=== PATIENT | male | born 1935 | race Caucasian/White ===

== ENCOUNTER 2017-04-27 02:16 | Emergency (ER) | payer OTHER ==
[~2017-04-27] VITALS: Ht 177.8 cm; Wt 86.3 kg
[~2017-04-27 02:16] MED LIST: ASPIR-LOW81 MG PO; COZAAR50 MG PO; HYDROCHLOROTHIA25 MG PO; LOSARTAN POTASS50 MG PO; MIRALAX255 GM PO; RANITIDINE HCL150 MG PO; SIMVASTATIN20 MG PO; ULTRAM50 MG PO
[2017-04-27 02:54] LABS: HEMATOCRIT 43.4 % (38.0-50.0); MCH 28.1 PG (29.0-34.0); MCHC 33.2 G/DL (30.0-36.0); MCV 84.6 FL (86-99); MEAN PLAT.VOLUME 8.7 uM^3 (9.0-12.4); PLATELET COUNT 139 K/uL (156-360); RBC DIS.WIDTH-CV 13.5 % (11.8-14.6); RBC DIS.WIDTH-SD 41.6 % (39-53); RED BLOOD COUNT 5.13 M/uL (4.00-5.50); WHITE BLOOD COUNT 3.8 K/uL (4.1-10.2)
[2017-04-27 03:05] LABS: CHLORIDE 106 mEq/L (99-109); POTASSIUM 3.6 mEq/L (3.7-5.4); SODIUM 140 mEq/L (136-147)
[2017-04-27 03:08] LABS: GLUCOSE 131 mg/dL (70-99)
[2017-04-27 03:09] LABS: ANION GAP 10 MEQ/L (2-14)
[2017-04-27 03:10] LABS: TOTAL BILIRUBIN 0.4 mg/dL (0.0-1.0)
[2017-04-27 03:11] LABS: ALKALINE PHOSPHATASE 90 IU/L (3-129); GFR ESTIMATE (CALCULATED) > 59 mL/min/
[2017-04-27 03:12] LABS: UREA NITROGEN (BUN) 21 mg/dL (9-23)
[2017-04-27 03:15] LABS: LIPASE 13 U/L (1.0-51.0)
[2017-04-27 03:16] LABS: TROP-I INTERPRETATION NEGATIVE; TROPONIN-I 0.01 ng/mL (0.0-0.30)
[2017-04-27 04:19] LABS: ADD MIUA? NO; BILIRUBIN NEGATIVE; BLOOD NEGATIVE; COLOR STRAW ((YELLOW)); GLUCOSE (STRIP) NEGATIVE; KETONES NEGATIVE; LEUKOCYTES NEGATIVE; NITRITE NEGATIVE; PROTEIN (STRIP) NEGATIVE; SPECIFIC GRAVITY 1.017 (1.000-1.030); UCUL ADDED? NO; UROBILINOGEN 0.2 MG/DL (0.2-1.0)
[2017-04-27] MEDS ORDERED: BENTYL20 MG PO (04:36)
[2017-04-27] MEDS ORDERED: NORCO 5/3251 TABLET PO (04:36)
[2017-04-27 05:00] VITALS: BP 134/84
== END 2017-04-27 05:11 | disposition home or self-care (01) ==
LOC: EME 02:16
PROVIDERS: Emergency Medicine
DX: R10.31 Right lower quadrant pain (principal); D72.819 Decreased white blood cell count, unspecified; D69.6 Thrombocytopenia, unspecified; I10 Essential (primary) hypertension; I72.4 Aneurysm of artery of lower extremity; K21.9 Gastro-esophageal reflux disease without esophagitis; K57.90 Diverticulosis of intestine, part unspecified, without perforation or abscess without bleeding
CPT/HCPCS: 74177; 80053; 81003; 83605; 83690; 84484; 85027; 93005; 99281; 99285; J3010; J7030

== ENCOUNTER 2017-05-31 05:18 | Inpatient (IN) | payer OTHER ==
[2017-05-31] VITALS (11 sets, daily range): BP systolic 101–157; BP diastolic 68–92
[~2017-05-31] VITALS: Ht 177.8 cm; Wt 89.1 kg
[~2017-05-31 05:18] MED LIST changes: +BENTYL20 MG PO; +LO-DOSE ASPIRIN81 M2 PO; +NORCO 5/3251 TABLET PO; +NORVASC10 MG PO; +PROSCAR5 MG PO
[2017-05-31 10:26] LABS: HEMATOCRIT 40.4 % (38.0-50.0); MCH 28.4 PG (29.0-34.0); MCHC 33.4 G/DL (30.0-36.0); MCV 85.1 FL (86-99); MEAN PLAT.VOLUME 8.8 uM^3 (9.0-12.4); PLATELET COUNT 124 K/uL (156-360); RBC DIS.WIDTH-CV 13.7 % (11.8-14.6); RBC DIS.WIDTH-SD 42.8 % (39-53); RED BLOOD COUNT 4.75 M/uL (4.00-5.50); WHITE BLOOD COUNT 4.5 K/uL (4.1-10.2)
[2017-05-31 10:48] LABS: TROP-I INTERPRETATION NEGATIVE; TROPONIN-I < 0.01 ng/mL (0.0-0.30)
[2017-05-31 10:54] LABS: ANION GAP 10 MEQ/L (2-14); CHLORIDE 107 MEQ/L (99-109); GFR ESTIMATE (CALCULATED) > 59 mL/min/; GLUCOSE 129 mg/dL (70-99); POTASSIUM 3.9 MEQ/L (3.7-5.4); SAMPLE HEMOLYSIS CHECK 0; SAMPLE ICTERIC CHECK 0; SAMPLE LIPEMIA CHECK 0; SODIUM 142 MEQ/L (136-147); UREA NITROGEN (BUN) 20 mg/dL (9-23)
[2017-05-31 13:40] LABS: METH RESISTANT S AUREUS PCR NEGATIVE (NEGATIVE)
[2017-05-31 13:41] LABS: PROBE CHECK PASS; SPECIMEN PROCESSING CONTROL PASS
[2017-06-01 03:35] VITALS: BP 109/67
[2017-06-01 05:42] LABS: HEMATOCRIT 38.8 % (38.0-50.0); MCHC 32.2 G/DL (30.0-36.0); MCV 86.8 FL (86-99); PLATELET COUNT 121 K/uL (156-360); RBC DIS.WIDTH-CV 14.1 % (11.8-14.6); RBC DIS.WIDTH-SD 44.7 % (39-53); RED BLOOD COUNT 4.47 M/uL (4.00-5.50); WHITE BLOOD COUNT 5.2 K/uL (4.1-10.2)
[2017-06-01 06:08] LABS: ANION GAP 6 MEQ/L (2-14); CHLORIDE 103 MEQ/L (99-109); GFR ESTIMATE (CALCULATED) > 59 mL/min/; GLUCOSE 107 mg/dL (70-99); SAMPLE HEMOLYSIS CHECK 0; SAMPLE ICTERIC CHECK 0; SAMPLE LIPEMIA CHECK 0; SODIUM 139 MEQ/L (136-147); UREA NITROGEN (BUN) 18 mg/dL (9-23)
[2017-06-01 06:16] LABS: TROP-I INTERPRETATION NEGATIVE; TROPONIN-I < 0.01 ng/mL (0.0-0.30)
[2017-06-01 07:05] VITALS: BP 127/79
[2017-06-01 11:25] VITALS: BP 138/83
[2017-06-01 15:18] VITALS: BP 130/83
[2017-06-01 19:09] VITALS: BP 123/82
[2017-06-01 23:32] VITALS: BP 110/64
[2017-06-02 03:00] VITALS: BP 128/81
[2017-06-02 07:26] VITALS: BP 128/79
[2017-06-02 11:39] VITALS: BP 121/67
[2017-06-02] MEDS ORDERED: TRAMADOL HCL50 MG PO (12:09)
== END 2017-06-02 13:35 | disposition home or self-care (01) | DRG 253 ==
LOC: 2SOUTH 05:18 → 4WEST 12:04 → 2SOUTH 15:45 → 4EAST 21:04
PROVIDERS: Surgery
PROC: 04RK0JZ Replacement of Right Femoral Artery with Synthetic Substitute, Open Approach (ICD-10-PCS; principal; 2017-05-31)
DX: I72.4 Aneurysm of artery of lower extremity (principal); I74.3 Embolism and thrombosis of arteries of the lower extremities; I10 Essential (primary) hypertension
CPT/HCPCS: 80048; 84484; 85027; 87641; 93005; C1875; C2628; J0330; J0690; J1170; J1644; J1650; J2405; J2720; J3010; J7120

== ENCOUNTER 2018-05-05 13:57 | Emergency (ER) | payer OTHER ==
[~2018-05-05] VITALS: Ht 177.8 cm; Wt 87.0 kg
[~2018-05-05 13:57] MED LIST changes: +TRAMADOL HCL50 MG PO
[2018-05-05 15:33] LABS: HEMATOCRIT 43.1 % (38.0-50.0); HEMOGLOBIN 14.8 G/DL (12.5-16.6); MCH 28.8 PG (29.0-34.0); MCHC 34.3 G/DL (30.0-36.0); PLATELET COUNT 155 K/uL (156-360); RBC DIS.WIDTH-CV 13.8 % (11.8-14.6); RBC DIS.WIDTH-SD 42.4 % (39-53); RED BLOOD COUNT 5.13 M/uL (4.00-5.50); WHITE BLOOD COUNT 5.3 K/uL (4.1-10.2)
[2018-05-05 15:43] LABS: CHLORIDE 103 mEq/L (99-109); POTASSIUM 4.4 mEq/L (3.7-5.4); SODIUM 138 mEq/L (136-147)
[2018-05-05 15:44] LABS: GLUCOSE 170 mg/dL (70-99)
[2018-05-05 15:48] LABS: CREATININE 1.3 mg/dL (0.6-1.3); GFR ESTIMATE (CALCULATED) 56 mL/min/ (58.99-99999)
[2018-05-05 15:49] LABS: UREA NITROGEN (BUN) 22 mg/dL (9-23)
[2018-05-05 15:55] LABS: TROP-I INTERPRETATION NEGATIVE; TROPONIN-I < 0.01 ng/mL (0.0-0.30)
[2018-05-05 17:22] VITALS: BP 126/84
== END 2018-05-05 17:24 | disposition home or self-care (01) ==
LOC: EME 13:57
PROVIDERS: Emergency Medicine
DX: R42 Dizziness and giddiness (principal); I10 Essential (primary) hypertension; E78.5 Hyperlipidemia, unspecified; Z86.79 Personal history of other diseases of the circulatory system; Z79.82 Long term (current) use of aspirin; Z85.828 Personal history of other malignant neoplasm of skin; K21.9 Gastro-esophageal reflux disease without esophagitis
CPT/HCPCS: 71045; 80048; 84484; 85027; 93005; 99281; 99284